=== PATIENT | female | born 1945 | race Asian ===

== ENCOUNTER 2020-05-05 17:26 | Inpatient (IN) | payer OTHER, BC ==
[2020-05-05 17:34] VITALS: BMI 26.5
[2020-05-05] MEDS ORDERED: ACETAMINOPHEN 1000 MG/100 ML VIAL (NON FORMULARY) IVPB ONE (21:33)
[2020-05-05 22:00] LABS: BASO % 0.6 % (0-2.0); EOS % 1.2 % (0-4.5); HEMATOCRIT 35.8 % (32.4-45.2); HEMOGLOBIN 12.2 GM/dL (10.7-15.3); LYMPH % 24.6 % (8-40); MCH 32.1 pg (25.7-33.7); MCHC 34.1 g/dl (32.0-36.0); MEAN CELL VOLUME 94.3 fl (80-96); MEAN PLT VOLUME 8.1 fl (7.5-11.1); MONO % 8.8 % (3.8-10.2); NEUT % 64.8 % (42.8-82.8); PLATELET COUNT 410 K/MM3 (134-434); RDW 12.6 % (11.6-15.6); WHITE BLOOD COUNT 5.9 K/mm3 (4.0-10.0)
[2020-05-05 22:09] LABS: INR 0.97 (0.83-1.09); PROTHROMBIN TIME (PATIENT) 11.8 SEC (9.7-13.0)
[2020-05-05 22:12] LABS: ACTIVATED PTT 31.1 SECONDS (25.2-36.5); CHLORIDE 101 mmol/L (98-107); POTASSIUM 3.4 mmol/L (3.5-5.1); SODIUM 137 mmol/L (136-145)
[2020-05-05 22:14] LABS: ANION GAP 6 MMOL/L (8-16); BLOOD UREA NITROGEN 22.5 mg/dL (7-18); CALCIUM 9.4 mg/dL (8.5-10.1); CO2 30 mmol/L (21-32); GLUCOSE,RANDOM 185 mg/dL (74-106); MAGNESIUM 1.4 mg/dL (1.8-2.4)
[2020-05-05 22:17] LABS: SGOT/AST 35 U/L (15-37); SGPT/ALT 55 U/L (13-61)
[2020-05-05 22:18] LABS: BILIRUBIN,DIRECT 0.2 mg/dL (0.0-0.2)
[2020-05-05 22:18] LABS: CREATININE 1.1 mg/dL (0.55-1.3)
[2020-05-05 22:19] LABS: BILIRUBIN,TOTAL 0.3 mg/dL (0.2-1); TOT PROT 7.3 g/dl (6.4-8.2)
[2020-05-05 22:20] LABS: ALK PHOS 79 U/L (45-117)
[2020-05-05] MEDS ORDERED: ACETAMINOPHEN INJECTION 100 ML IVPB ONE (22:52)
[2020-05-05] MEDS ORDERED: SODIUM CHLORIDE 0.9% 1000 ML INFUS.BAG IV ONE (23:18)
[2020-05-06] MEDS ORDERED: MAGNESIUM SULF 50% (8.12 MEQ/2 ML-1 GM VIAL) IVPB ONE (00:11)
[2020-05-06] MEDS ORDERED: MAGNESIUM SULFATE IN WATER 2 GM/50 ML IVPB IVPB ONE (01:45)
[2020-05-06] MEDS ORDERED: POTASSIUM CHLORIDE TABS 20 MEQ TABLET.ER (FP) PO ONE ×2 (08:30→08:36)
[2020-05-06] MEDS ORDERED: LOSARTAN POTASSIUM 50 MG TABLET PO SCH (10:00)
[2020-05-06] MEDS ORDERED: INSULIN SLIDING SCALE (NOVOLOG) 1 VIAL SQ SCH (11:00)
[2020-05-06] MEDS ORDERED: LOSARTAN POTASSIUM 50 MG TABLET ONE (12:27)
[2020-05-06 12:43] LABS: POTASSIUM 3.6 mmol/L (3.5-5.1)
[2020-05-06 12:45] LABS: EPI CELLS 6 /uL (0-25.1); HYALINE CASTS 0 /uL (0-3.1); PH,URINE 5.5 (5.0-8.0); URINE APPEARANCE CLEAR; URINE BACTERIA 83 /uL (0-1359); URINE BILIRUBIN NEGATIVE (NEGATIVE); URINE COLOR YELLOW; URINE GLUCOSE (UA) 1+ (NEGATIVE); URINE KETONE NEGATIVE (NEGATIVE); URINE LEUK ESTERASE 1+ (NEGATIVE); URINE NITRITE NEGATIVE (NEGATIVE); URINE PROTEIN NEGATIVE (NEGATIVE); URINE RBC 4 /uL (0-23.9); URINE UROBILINOGEN 0.2 mg/dL (0.2-1.0); URINE WBC 16 /uL (0-25.8)
[2020-05-06 12:45] LABS: ALBUMIN 2.7 g/dl (3.4-5.0)
[2020-05-06 12:46] LABS: BLOOD UREA NITROGEN 18.3 mg/dL (7-18)
[2020-05-06 12:50] VITALS: BP 138/74; PULSE 81; TEMP 98.8
[2020-05-06 12:50] LABS: BILIRUBIN,TOTAL 0.3 mg/dL (0.2-1); TOT PROT 6.7 g/dl (6.4-8.2)
[2020-05-06 13:33] LABS: MAGNESIUM 1.7 mg/dL (1.8-2.4)
== END 2020-05-06 17:06 | disposition home or self-care (01) | DRG 177 ==
LOC: JER 17:26 → JERBED 05-06 → OBSVTOIN 05-06 08:30
PROVIDERS: ADMIT Internal Medicine; ATTEND Internal Medicine
DX: U07.1 COVID-19 (principal); J12.82 Pneumonia due to coronavirus disease 2019; C90.00 Multiple myeloma not having achieved remission; E87.2 Acidosis; I10 Essential (primary) hypertension; E78.5 Hyperlipidemia, unspecified; E11.9 Type 2 diabetes mellitus without complications; E83.42 Hypomagnesemia
CPT/HCPCS: 36415; 71046-TC-FY; 80053; 81003; 82248; 82550; 82728; 82962; 83605; 83615; 83735; 84484; 85025; 85379; 85610; 85730; 86140; 87040; 87086; 87186; 87804; 93005; 93010; 99291; C9803; G0378; J0131; U0003

== ENCOUNTER 2024-01-25 10:14 | Emergency (ER) | payer OTHER, BC ==
[2024-01-25 10:21] VITALS: BP 143/85; PULSE 92; RESP 16; TEMP 97.5; BMI 26.4
[2024-01-25] MEDS ORDERED: ACETAMINOPHEN 325 MG TABLET (FP) ONE (10:42)
[2024-01-25] MEDS ORDERED: guaiFENesin/CODEINE 10 ML UNIT-DOSE CUPS ONE (10:42)
[2024-01-25] MEDS ORDERED: guaiFENesin/D-METHORPHAN HB 10 ML UNIT-DOSE CUPS ONE (10:45)
[2024-01-25] MEDS: ACETAMINOPHEN 325 MG TABLET (FP) PO ONE (10:56)
[2024-01-25] MEDS: guaiFENesin 200 MG/10 ML 10 ML UNIT-DOSE CUPS PO ONE (10:56)
== END 2024-01-25 11:41 | disposition home or self-care (01) ==
LOC: FER 10:14
DX: R05.9 Cough, unspecified (principal); J06.9 Acute upper respiratory infection, unspecified; R07.81 Pleurodynia; R51.9 Headache, unspecified; M54.9 Dorsalgia, unspecified; Z20.822 Contact with and (suspected) exposure to COVID-19
CPT/HCPCS: 0241U-QW; 71046-TC-FY; 99284-25